=== PATIENT | male | born 1980 | race Two or more races ===

== ENCOUNTER 2024-09-29 19:02 | Emergency (ER) | payer BC ==
[~2024-09-29] VITALS: Ht 182.9 cm; Wt 127.2 kg
[~2024-09-29 19:02] MED LIST: AUG875T PO
--- NOTE | 2024-09-29 19:32 | ED.PDOC ---
SOB-HPI HPI Comments HPI: 44-year-old male presents with a chief complaint of flu-like symptoms x onset Thursday. Patient states that his symptoms are cough, dry mouth, fever, and body aches. Patient reports that his highest recorded temperature at home was 106.0F. Patient reports that he does have sick contacts at home, niece of patient reportedly tested positive for influenza. Patient has been drinking more water than is typical for him, and has also been taking OTC Motrin and Nyquil. Patient denies any chest pain, headache, nausea, vomiting, diarrhea, or SOB. No other symptoms or modifying factors present at this time. PMHx: None PSHx: None Allergies: None Initial Vital Signs: BP: HR: Temp: SpO2: RR: Time Seen by MD: 19:25 Primary Care Provider: MURALI Houser notes: Medications, Allergies Information Source: Patient Mode of Arrival: Ambulatory Past Medical History PAST MEDICAL HISTORY: Denies Surgical History: Denies all surgeries Family History Family History: No family hx of Heart dimitris Social History Smoker: Non-Smoker Alcohol: Occasionally Drugs: Denies Drug Use Lives In: Home Was a procedure done? Was a procedure done?: No Differential Dx Differential Diagnosis: Anxiety, Asthma, Bronchitis, CHF, COPD, Dysrhythmia, Hypertension, Hyperventilation, Pneumonia, Pneumothorax, PSVT, Pulmonary Embolism, Respiratory Distress, Sinusitis, Allergic Rhinitis, URI X-Ray, Labs, Meds, VS Vital Signs Date Time Temp Pulse Resp B/P (MAP) Pulse Ox O2 Delivery O2 Flow Rate FiO2 09/29/24 21:54 98.4 09/29/24 21:48 98.4 109 16 133/91 (105) 98 98.4 09/29/24 19:30 99.3 112 20 114/89 (97) 96 Lab Test 09/29/24 19:37 09/29/24 19:33 Range/Units Sodium Level 133 L 136-145 mmol/L Potassium Level 4.3 3.5-5.1 mmol/L Chloride Level 100 98-107 mmol/L Carbon Dioxide Level 17 L 20-31 mmol/L Anion Gap 16 H 5-15 Blood Urea Nitrogen 14 9-23 mg/dL Creatinine 1.09 0.700-1.30 mg/dL Glomerular Filtration Rate Calc 85 >90 mL/min BUN/Creatinine Ratio 12.8 10.0-20.0 Serum Glucose 311 H 74-106 mg/dL Lactic Acid Level 1.8 0.4-2.0 mmol/L Calcium Level 9.8 8.7-10.4 mg/dL Magnesium Level 1.7 1.6-2.6 mg/dL Total Bilirubin 1.2 H 0.2-1.0 mg/dL Aspartate Amino Transferase (AST) 330 H 13-40 U/L Alanine Aminotransferase (ALT) 333 H 7-40 U/L Alkaline Phosphatase 169 H 46-116 U/L Troponin I High Sensitivity < 3 L </=54 ng/L B-Type Natriuretic Peptide 3.68 0-100 pg/mL Total Protein 7.2 5.7-8.2 g/dL Albumin 4.8 3.2-4.8 g/dL Urine Color Yellow Yellow Urine Clarity Clear Clear Urine pH 6.0 5.0-9.0 Urine Specific [place] 1.044 H 1.001-1.035 Urine Protein 2+ H Negative Urine Ketones 4+ H Negative Urine Blood Negative Negative /uL Urine Nitrite Negative Negative Urine Bilirubin Negative Negative Urine Urobilinogen 2 H Negative mg/dL Urine Leukocyte Esterase Negative Negative /uL Urine RBC 1 0 - 3 /hpf Urine Microscopic WBC 1 0-3 /HPF Urine Squamous Epithelial Cells Few <5 /hpf Urine Bacteria None seen None Seen /hpf Urine Hyaline Casts Few 0 - 2 /lpf Urine Mucus Few None Seen Urine Glucose 4+ H Normal mg/dL Influenza Type A Antigen Negative Negative Influenza Type B Antigen Positive Negative SARS-CoV-2 Antigen (Rapid) Negative NEGATIVE Current Medications Medications (Trade) Dose Ordered Sig/Earnest Route Start Time Stop Time Status Last Admin Sodium Chloride 1,000 ml @ 1,000 mls/hr Q1H ONCE IV 09/29/24 19:30 09/29/24 20:29 DC 09/29/24 21:54 Acetaminophen (Tylenol Tablet) 1,000 mg ONCE ONCE PO 09/29/24 19:30 09/29/24 19:31 DC 09/29/24 21:54 Sodium Chloride 1,000 ml @ 1,000 mls/hr Q1H ONCE IV 09/29/24 21:00 09/29/24 21:59 DC 09/29/24 21:54 PATIENT: BETZAIDA HUNTER JROACCT: [id number]: [id number] : 1980 LOC: ER ROOM / BED: / AGE / SEX: 44 / M ADM STATUS: REG ER SERVICE 26 ORDERING PHYSICIAN: JOVANNI EDGE DO PROCEDURE(s): CXRP - CHEST PORTABLE REASON: cough/fever/bodyaches ORDER NUMBER(s): [id number], ACCESSION NUMBER(s): [id number] CHEST RADIOGRAPH Indication: cough/fever/bodyaches Technique: Single frontal view of the chest was obtained COMPARISON: None FINDINGS: Lines and Tubes: None Lungs: Congestion Pleura: No effusion. No pneumothorax. Cardiomediastinal contours: Unremarkable Bones: Unremarkable IMPRESSION: Congestion versus viral pneumonitis ATED BY: EDIN BENNETT MD DICTATED DATE/TIME: 09/29/241955 SIGNED BY: EDIN BENNETT MD SIGNED DATE/TIME: 09/29/241955 Time of 1ST Reevaluation: 19:55 Reevaluation 1ST: Unchanged Patient Education/Counseling: Diagnosis, Treatment Family Education/Counseling: Diagnosis, Treatment Comments Patient is outside the window for Tamiflu Patient presented with the above HPI.---viral syndrome---workup was initiated. patient was found with the above mentioned diagnosis. the following medications were ordered: please refer to order lists of meds and tests obtained by myself Dr. Edge. Patient ED course and VS have been stabilized. Patient has been reassessed in the ED and remained in a stable condition. Pertinent incidental findings were discussed with the patient and/or family. Patient/family voices understanding and is agreeable with plan. Patient has been observed in the ED adequate length of time to insure improvement/stability. Escalation of care considered: Consideration of escalation to observation or admission Patient was DISCHARGED home in a stable condition. All the reports of any imaging studies that were ordered by myself were reviewed by myself. Departure 1 Departure Time of Disposition: 23:09 Impression: Primary Impression: Influenza B Additional Impressions: Elevated LFTs History of alcohol abuse Uncontrolled diabetes mellitus Disposition: HOME / SELF CARE / HOMELESS Condition: Stable Additional Instructions: Additional discharge instructions: You MUST follow-up with your primary care/family doctor in 1 to 2 days. If you are unable to see your primary care/family doctor, please return to our emergency room for re-assessment and re-evaluation in 1 to 2 days. Return to the emergency room here in our facility or to the nearest ER [facility] if your symptoms change or worsen. CONSULTATIONS: you MUST Follow-up for consultation as soon as possible with: -gastroenterology because of the elevated LFTs. Please seek help regarding alcohol use. You MUST call the consultants office yourself to make an appointment. You may need to arrange that through your insurance and/or your primary/family doctor. If you are unable to see the medical cost consultant in 1 to 2 days, you must return to our emergency room (or any other ER of your choice) for re-assessment and re- evaluation. Adequate fluid hydration. You are contagious. Please exercise good hygiene and masking. Discharged With: Self Critical Care Note Critical Care Time?: No I personally scribed for JOVANNI EDGE DO ([email or web address]) on 09/29/24 at 19:32. Electronically submitted by Linwood Rudd ([email or web address]). I personally scribed for JOVANNI EDGE DO ([email or web address]) on 09/29/24 at 20:18. Electronically submitted by Linwood Rudd ([email or web address]). JOVANNI EDGE DO Sep 29, 2024 19:32
[2024-09-29 19:58] LABS: Urine Bacteria None Seen /hpf (None Seen)
--- NOTE | 2024-09-29 20:00 | DVH ---
CHEST RADIOGRAPH Indication: cough/fever/bodyaches Technique: Single frontal view of the chest was obtained COMPARISON: None FINDINGS: Lines and Tubes: None Lungs: Congestion Pleura: No effusion. No pneumothorax. Cardiomediastinal contours: Unremarkable Bones: Unremarkable IMPRESSION: Congestion versus viral pneumonitis
[2024-09-29 20:13] LABS: Urine Blood Negative /uL (Negative); Urine Clarity Clear (Clear); Urine Color Yellow (Yellow); Urine Hyaline Cast FEW /lpf (0 - 2); Urine Mucus FEW (None Seen); Urine Protein, UAD 2+ (Negative); Urine Specific Gravity 1.044 (1.001-1.035); Urine Squamous Epithelial Cell FEW /hpf (<5); Urine Urobilinogen 2 mg/dL (Negative); Urine WBC 1 /HPF (0-3)
[2024-09-29 20:22] LABS: Anion Gap 16 (5-15); BUN/Creatinine Ratio 12.8 (10.0-20.0); Blood Urea Nitrogen 14 mg/dL (9-23); Calcium 9.8 mg/dL (8.7-10.4); Chloride 100 mmol/L (98-107); Magnesium 1.7 mg/dL (1.6-2.6); Potassium 4.3 mmol/L (3.5-5.1)
[2024-09-29 20:23] LABS: Total Protein 7.2 g/dL (5.7-8.2)
[2024-09-29 20:24] LABS: Bilirubin, Total 1.2 mg/dL (0.2-1.0)
[2024-09-29 20:25] LABS: Alanine Aminotransferase 333 U/L (7-40); Albumin 4.8 g/dL (3.2-4.8); Alkaline Phosphatase 169 U/L (46-116); Aspartate Aminotransferase 330 U/L (13-40); Carbon Dioxide 17 mmol/L (20-31); Glucose 311 mg/dL (74-106); Sodium 133 mmol/L (136-145)
[2024-09-29 20:47] LABS: COVID19 ANTIGEN SOFIA FIA NEGATIVE (NEGATIVE)
[2024-09-29 20:48] LABS: Rapid Influenza A Negative (Negative); Rapid Influenza B Positive (Negative)
[2024-09-29 21:48] VITALS: BP 133/91; PULSE 109; RESP 16; O2SAT 98
[2024-09-29 21:54] VITALS: TEMP 98.4
[2024-09-29] MEDS: SODIUM CHLORIDE 0.9% 1,000 ML IV ONE ×2 (21:54)
[2024-09-29] MEDS: ACETAMINOPHEN 325 MG TAB PO ONE (21:54)
== END 2024-09-30 05:32 | disposition home or self-care (01) ==
LOC: ER 19:02
DX: J10.1 Influenza due to other identified influenza virus with other respiratory manifestations (principal); E11.65 Type 2 diabetes mellitus with hyperglycemia; Z20.822 Contact with and (suspected) exposure to COVID-19
CPT/HCPCS: 36415; 71045; 80053; 81001; 83605; 83735; 83880; 84484; 87426; 87804; 96360; 99284; J7030